=== PATIENT | female | born 1955 | race African-American/Black ===

== ENCOUNTER 2018-10-01 23:18 | Inpatient (IN) | payer OTHER ==
[~2018-10-01] VITALS: Ht 170.2 cm; Wt 142.4 kg
[2018-10-02] MEDS ORDERED: MORPHINE SULFATE 4 MG/ML CPJ (NOT FOR IM USE) IV STA (01:32)
[2018-10-02] MEDS ORDERED: SODIUM CHLORIDE 0.9% 1,000 ML IV ONE (01:32)
[2018-10-02] MEDS ORDERED: ONDANSETRON HCL 4MG/2ML INJ IV STA (01:32)
[2018-10-02 01:59] LABS: BASOPHILS % 0.8 % (0.0-2.0); EOSINOPHILS % 2.5 % (0.0-5.0); HEMATOCRIT. 35.9 % (36.0-48.0); HEMOGLOBIN. 11.7 g/dL (12.0-16.0); LYMPHOCYTES % 43.5 % (20.0-50.0); MEAN CORPUSCULAR HEMOGLOBIN 28.3 pg (28.0-32.0); MEAN CORPUSCULAR VOLUME 86.4 fL (81.0-99.0); MEAN PLATELET VOLUME 8.1 fl (7.4-10.4); MONOCYTES % 6.6 % (2.0-8.0); NEUTROPHILS % 46.6 % (40.0-76.0); PLATELET 346 x1000/uL (130-400); RED BLOOD CELL COUNT 4.15 mill/uL (4.2-5.4); RED CELL DISTRIBUTION WIDTH 13.9 % (11.6-14.6)
[2018-10-02 02:05] LABS: CHLORIDE 110 mEq/L (98-107)
[2018-10-02 02:06] LABS: INR 1.1; PROTHROMBIN TIME 10.7 sec (9.1-11.1)
[2018-10-02 04:52] LABS: CLARITY URINE TURBID (CLEAR); COLOR URINE YELLOW (YELLOW); KETONES URINE NEGATIVE (NEGATIVE); LEUKOCYTE ESTERASE URINE 3+ (NEGATIVE); NITRITE URINE NEGATIVE (NEGATIVE); OCCULT BLOOD URINE 2+ (NEGATIVE); PROTEIN URINE NEGATIVE (NEGATIVE); SPECIFIC GRAVITY URINE 1.016 (1.005-1.030); UROBILINOGEN URINE 0.2 E.U./dL (0.2-1.0)
[2018-10-02] MEDS ORDERED: CEFTRIAXONE 1 G PREMIX 50 ML IV NR (05:15)
[2018-10-02] MEDS ORDERED: POTASSIUM CHLORIDE 20MEQ TABLET SR PO NR (05:15)
[2018-10-02] MEDS ORDERED: MORPHINE SULFATE 10 MG/ML CPJ IV ONE (05:30)
[2018-10-02 08:00] VITALS: BP 122/85
[2018-10-02 09:29] VITALS: BP 121/82
[2018-10-02] MEDS ORDERED: LABE100T5 MT (09:42)
[2018-10-02] MEDS ORDERED: HYDR12.54 MT (09:42)
[2018-10-02] MEDS ORDERED: FLUO20CA33 MT (09:42)
[2018-10-02] MEDS ORDERED: INDO25CA18 MT (09:42)
[2018-10-02] MEDS ORDERED: FLUT1AER IH (09:42)
[2018-10-02] MEDS ORDERED: FLUT16SP15 BOTHNSTRLS (09:42)
[2018-10-02] MEDS ORDERED: PRO1 MT (09:42)
[2018-10-02] MEDS ORDERED: ASPI-1159 MT (09:42)
[2018-10-02] MEDS: SODIUM CHLORIDE 0.45% 1,000 ML IV SCH ×2 (10:00→23:39)
[2018-10-02] MEDS ORDERED: ACETAMINOPHEN 325MG TABLET PO PRN (10:00)
[2018-10-02] MEDS ORDERED: CEFTRIAXONE 1 G PREMIX 50 ML IV SCH (10:00)
[2018-10-02] MEDS: HYDROCODONE/ACETAMINOPHEN 5/325MG TABLET PO PRN (10:18)
[2018-10-02 12:00] VITALS: BP 108/61
[2018-10-02 16:00] VITALS: BP 117/81
[2018-10-02] MEDS: MORPHINE SULFATE 4 MG/ML CPJ (NOT FOR IM USE) IV PRN ×2 (18:03→23:41)
[2018-10-02] MEDS: ONDANSETRON HCL 4MG/2ML INJ IV PRN (18:51)
[2018-10-02 20:00] VITALS: BP 128/77
[2018-10-03] VITALS (7 sets, daily range): BP systolic 134–192; BP diastolic 70–119
[2018-10-03] MEDS ORDERED: INDOMETHACIN 25MG CAPSULE PO PRN
[2018-10-03] MEDS: IPRATROPIUM/ALBUTEROL 0.5-3(2.5)MG/3ML NEB HHN PRN ×3 (01:25→10:34)
[2018-10-03] MEDS: ONDANSETRON HCL 4MG/2ML INJ IV PRN ×4 (01:48→21:26)
[2018-10-03] MEDS: LORAZEPAM 2MG/ML CPJ IV PRN ×2 (05:19→20:00)
[2018-10-03] MEDS ORDERED: CEFTRIAXONE 1,000 MG in DEXTROSE 5% WATER 50 ML IV SCH (05:30)
[2018-10-03 08:23] LABS: CHLORIDE 111 mEq/L (98-107)
[2018-10-03 09:03] LABS: BASOPHILS % 0.6 % (0.0-2.0); EOSINOPHILS % 2.1 % (0.0-5.0); HEMATOCRIT. 37.4 % (36.0-48.0); HEMOGLOBIN. 12.5 g/dL (12.0-16.0); LYMPHOCYTES % 27.6 % (20.0-50.0); MEAN CORPUSCULAR HEMOGLOBIN 28.4 pg (28.0-32.0); MEAN CORPUSCULAR VOLUME 85.4 fL (81.0-99.0); MEAN PLATELET VOLUME 8.6 fl (7.4-10.4); MONOCYTES % 4.6 % (2.0-8.0); NEUTROPHILS % 65.1 % (40.0-76.0); PLATELET 340 x1000/uL (130-400); RED BLOOD CELL COUNT 4.39 mill/uL (4.2-5.4); RED CELL DISTRIBUTION WIDTH 13.6 % (11.6-14.6)
[2018-10-03] MEDS: HYDROCODONE/ACETAMINOPHEN 5/325MG TABLET PO PRN ×2 (10:16→21:21)
[2018-10-03] MEDS: HYDRALAZINE 20MG/ML VIAL IV PRN ×2 (11:07→19:53)
[2018-10-03] MEDS: MORPHINE SULFATE 4 MG/ML CPJ (NOT FOR IM USE) IV PRN (11:08)
[2018-10-03] MEDS: METHYLPREDNISOLONE SOD SUCC 40 MG/ML VIAL IV SCH ×2 (11:37→18:25)
[2018-10-03] MEDS: LOSARTAN POTASSIUM 50 MG TABLET PO SCH ×2 (11:38→21:19)
[2018-10-03] MEDS: SODIUM CHLORIDE 0.45% 1,000 ML IV SCH (14:40)
[2018-10-03] MEDS: IPRATROPIUM/ALBUTEROL 0.5-3(2.5)MG/3ML NEB HHN SCH (21:55)
[2018-10-03] MEDS ORDERED: CEFEPIME 1,000 MG in DEXTROSE 5% WATER 50 ML IV SCH (22:15)
[2018-10-03] MEDS: CEFEPIME 1,000 MG in DEXTROSE 5% WATER 50 ML IV SCH (23:42)
[2018-10-04] VITALS: BP 160/116
[2018-10-04] MEDS: IPRATROPIUM/ALBUTEROL 0.5-3(2.5)MG/3ML NEB HHN SCH ×6 (01:50→20:23)
[2018-10-04] MEDS: METHYLPREDNISOLONE SOD SUCC 40 MG/ML VIAL IV SCH ×2 (03:15→09:57)
[2018-10-04] MEDS: SODIUM CHLORIDE 0.45% 1,000 ML IV SCH ×2 (03:15→16:01)
[2018-10-04 04:00] VITALS: BP 147/99
[2018-10-04] MEDS: MORPHINE SULFATE 4 MG/ML CPJ (NOT FOR IM USE) IV PRN ×4 (04:23→19:56)
[2018-10-04] MEDS: ONDANSETRON HCL 4MG/2ML INJ IV PRN ×2 (04:40→16:53)
[2018-10-04 06:30] LABS: BASOPHILS % 0.5 % (0.0-2.0); HEMATOCRIT. 40.2 % (36.0-48.0); HEMOGLOBIN. 13.2 g/dL (12.0-16.0); LYMPHOCYTES % 18.7 % (20.0-50.0); MEAN CORPUSCULAR HEMOGLOBIN 28.5 pg (28.0-32.0); MEAN CORPUSCULAR VOLUME 86.8 fL (81.0-99.0); MEAN PLATELET VOLUME 9.1 fl (7.4-10.4); NEUTROPHILS % 78.8 % (40.0-76.0); PLATELET 220 x1000/uL (130-400); RED BLOOD CELL COUNT 4.63 mill/uL (4.2-5.4); RED CELL DISTRIBUTION WIDTH 13.9 % (11.6-14.6)
[2018-10-04 06:58] LABS: CHLORIDE 110 mEq/L (98-107)
[2018-10-04 08:00] VITALS: BP 141/97
[2018-10-04] MEDS ORDERED: POTASSIUM CHLORIDE 20MEQ TABLET SR PO NR (09:00)
[2018-10-04] MEDS: LOSARTAN POTASSIUM 50 MG TABLET PO SCH ×2 (09:57→20:52)
[2018-10-04] MEDS: LORAZEPAM 2MG/ML CPJ IV PRN (11:43)
[2018-10-04] MEDS: CEFEPIME 1,000 MG in DEXTROSE 5% WATER 50 ML IV SCH (11:43)
[2018-10-04 12:00] VITALS: BP 171/104
[2018-10-04] MEDS: LEVOFLOXACIN 750MG PREMIX 150 ML IV SCH (14:34)
[2018-10-04] MEDS: HYDRALAZINE 20MG/ML VIAL IV PRN (14:52)
[2018-10-04 16:00] VITALS: BP 141/95
[2018-10-04 20:00] VITALS: BP 148/112
[2018-10-04] MEDS: GUAIFENESIN-DM 200MG-20MG/10ML UDC PO PRN (20:52)
[2018-10-04] MEDS: AMLODIPINE 5MG TABLET PO SCH (20:52)
[2018-10-04] MEDS: HYDROCODONE/ACETAMINOPHEN 5/325MG TABLET PO PRN (20:58)
[2018-10-05] VITALS: BP 145/100
[2018-10-05] MEDS: MORPHINE SULFATE 4 MG/ML CPJ (NOT FOR IM USE) IV PRN ×5 (02:18→22:02)
[2018-10-05 04:00] VITALS: BP 126/89
[2018-10-05] MEDS: IPRATROPIUM/ALBUTEROL 0.5-3(2.5)MG/3ML NEB HHN SCH ×3 (04:00→08:00)
[2018-10-05] MEDS: SODIUM CHLORIDE 0.45% 1,000 ML IV SCH ×2 (05:35→17:44)
[2018-10-05 08:00] VITALS: BP 137/92
[2018-10-05] MEDS: LORAZEPAM 2MG/ML CPJ IV PRN (09:10)
[2018-10-05] MEDS: LOSARTAN POTASSIUM 50 MG TABLET PO SCH ×2 (09:10→22:01)
[2018-10-05] MEDS: PREDNISONE 20MG TABLET PO SCH (09:10)
[2018-10-05] MEDS: AMLODIPINE 5MG TABLET PO SCH ×2 (09:10→22:02)
[2018-10-05] MEDS: LEVOFLOXACIN 750MG PREMIX 150 ML IV SCH (11:06)
[2018-10-05] MEDS: ONDANSETRON HCL 4MG/2ML INJ IV PRN (11:06)
[2018-10-05 12:00] VITALS: BP 181/109
[2018-10-05] MEDS: HYDRALAZINE 20MG/ML VIAL IV PRN (12:29)
[2018-10-05] MEDS: GUAIFENESIN-DM 200MG-20MG/10ML UDC PO PRN (12:29)
[2018-10-05] MEDS ORDERED: IPRATROPIUM BROMIDE (0.02%) 0.5MG/2.5ML NEB HHN PRN (13:00)
[2018-10-05] MEDS: IPRATROPIUM BROMIDE (0.02%) 0.5MG/2.5ML NEB HHN SCH ×2 (13:03→22:13)
[2018-10-05 16:00] VITALS: BP 168/106
[2018-10-05] MEDS ORDERED: CLONIDINE 0.1MG TABLET PO PRN (17:30)
[2018-10-05 20:00] VITALS: BP 130/80
[2018-10-05 23:13] LABS: BASOPHILS % 0.3 % (0.0-2.0); HEMATOCRIT. 37.5 % (36.0-48.0); HEMOGLOBIN. 12.3 g/dL (12.0-16.0); LYMPHOCYTES % 27.3 % (20.0-50.0); MEAN CORPUSCULAR HEMOGLOBIN 28.1 pg (28.0-32.0); MEAN CORPUSCULAR VOLUME 85.8 fL (81.0-99.0); MEAN PLATELET VOLUME 7.6 fl (7.4-10.4); MONOCYTES % 5.2 % (2.0-8.0); NEUTROPHILS % 67.2 % (40.0-76.0); PLATELET 359 x1000/uL (130-400); RED BLOOD CELL COUNT 4.37 mill/uL (4.2-5.4)
[2018-10-05 23:30] LABS: CHLORIDE 108 mEq/L (98-107)
[2018-10-06] VITALS: BP 107/73
[2018-10-06] MEDS: IPRATROPIUM BROMIDE (0.02%) 0.5MG/2.5ML NEB HHN SCH ×2 (03:16→08:10)
[2018-10-06 04:00] VITALS: BP 107/76
[2018-10-06] MEDS: MORPHINE SULFATE 4 MG/ML CPJ (NOT FOR IM USE) IV PRN ×2 (05:54→10:22)
[2018-10-06 08:00] VITALS: BP 142/64
[2018-10-06] MEDS: SODIUM CHLORIDE 0.45% 1,000 ML IV SCH (08:30)
[2018-10-06] MEDS: PREDNISONE 20MG TABLET PO SCH (08:31)
[2018-10-06] MEDS: LOSARTAN POTASSIUM 50 MG TABLET PO SCH (08:31)
[2018-10-06] MEDS: AMLODIPINE 5MG TABLET PO SCH (08:31)
[2018-10-06] MEDS: LEVOFLOXACIN 750MG PREMIX 150 ML IV SCH (11:23)
[2018-10-06 12:00] VITALS: BP 142/96
[2018-10-06 12:10] VITALS: BP 142/96
== END 2018-10-06 13:24 | disposition home or self-care (01) | DRG 720 ==
LOC: ER 23:18 → 6EST 10-02 05:20 → EDBEDREQTM 10-02 05:23 → EDBEDREQ 10-02 05:23 → ENRESERV 10-02 07:17 → 5WST 10-03 09:41
PROVIDERS: ADMIT Internal Medicine; ATTEND Internal Medicine
DX: A41.9 Sepsis, unspecified organism (principal); N17.0 Acute kidney failure with tubular necrosis; J96.00 Acute respiratory failure, unspecified whether with hypoxia or hypercapnia; J44.1 Chronic obstructive pulmonary disease with (acute) exacerbation; E44.1 Mild protein-calorie malnutrition; J45.901 Unspecified asthma with (acute) exacerbation; E66.01 Morbid (severe) obesity due to excess calories; E87.8 Other disorders of electrolyte and fluid balance, not elsewhere classified; I11.9 Hypertensive heart disease without heart failure; E87.6 Hypokalemia; B96.20 Unspecified Escherichia coli [E. coli] as the cause of diseases classified elsewhere; M54.30 Sciatica, unspecified side; N39.0 Urinary tract infection, site not specified; I25.10 Atherosclerotic heart disease of native coronary artery without angina pectoris; N28.1 Cyst of kidney, acquired; R07.9 Chest pain, unspecified; Z86.73 Personal history of transient ischemic attack (TIA), and cerebral infarction without residual deficits; Z87.440 Personal history of urinary (tract) infections; Z87.891 Personal history of nicotine dependence; Z68.42 Body mass index [BMI] 45.0-49.9, adult; Z79.899 Other long term (current) drug therapy; Z79.82 Long term (current) use of aspirin; Z87.01 Personal history of pneumonia (recurrent); Z90.49 Acquired absence of other specified parts of digestive tract; Z71.3 Dietary counseling and surveillance
CPT/HCPCS: 36415; 71045; 74176; 80048; 80061; 83036; 83605; 83880; 84443; 84484; 87077; 87186; 93005; 93970; 94640; 96374; 96375; 99285; J0360; J0692; J0696; J1956; J2060; J2270; J2405; J2920; J7030; J7060; J7512; J7620